=== PATIENT | female | born 1975 | race Caucasian/White ===

== ENCOUNTER 2020-11-04 15:04 | Emergency (ER) | payer SELFPAY ==
[~2020-11-04] VITALS: Ht 154.9 cm; Wt 60.0 kg
[~2020-11-04 15:04] MED LIST: BACTRIM DS1 TAB PO; CIPRO500 MG OR; DOXYCYCL HYC100 MG PO; FLEXERIL PO; MOTRIN800 MG PO; TRAMADOL HYDROC50 MG PO; ULTRAM50 M1 PO
[2020-11-04 16:45] LABS: URINE BILIRUBIN - DIPSTICK NEGATIVE (NEGATIVE); URINE BLOOD DIPSTICK TRACE-LYSED (NEGATIVE); URINE COLOR YELLOW; URINE GLUCOSE - DIPSTICK NEGATIVE (NEGATIVE); URINE KETONE NEGATIVE (NEGATIVE); URINE LEUK ESTERASE NEGATIVE (NEGATIVE); URINE NITRITE - DIPSTICK NEGATIVE (Negative); URINE PROTEIN - DIPSTICK NEGATIVE (NEG-TRACE); URINE SPECIFIC GRAVITY <=1.005; URINE UROBILINOGEN - DIPSTICK 0.2 E.U./dL (0.2)
[2020-11-04 17:46] VITALS: BP 100/55
== END 2020-11-04 16:20 | disposition left against medical advice (07) | DRG 556 ==
LOC: ED 15:04
PROVIDERS: Emergency Medicine
DX: M79.89 Other specified soft tissue disorders (principal); N63.20 Unspecified lump in the left breast, unspecified quadrant; F31.9 Bipolar disorder, unspecified; F17.200 Nicotine dependence, unspecified, uncomplicated; Z91.19 Patient's noncompliance with other medical treatment and regimen

== ENCOUNTER 2021-01-05 10:45 | Emergency (ER) | payer OTHER ==
[~2021-01-05] VITALS: Ht 154.9 cm; Wt 60.0 kg
[2021-01-05 12:06] LABS: HEMATOCRIT 45.1 % (37.0-47.0); HEMOGLOBIN 15.5 g/dl (12.0-16.0); IMMATURE GRANULOCYTES 0.3 % (0.0-5.0); MEAN CORPUSCULAR HGB CONC 34.4 g/dL CAL (32.0-36.0); NEUT# 5.45 thou/uL (2.00-7.15); RED BLOOD COUNT 4.56 mill/uL (4.20-5.60); RED CELL DISTRI WIDTH 12.6 % (11.5-15.5)
[2021-01-05 12:16] LABS: MEAN CELL VOLUME 98.9 fL CALC (80.0-100.0)
[2021-01-05 12:24] LABS: HCG SERUM/URINE (NEG/POS) NEGATIVE (NEGATIVE)
[2021-01-05 12:57] LABS: ALBUMIN 4.1 g/dL (3.2-5.0); ALKALINE PHOSPHATASE 54 u/l (38-126); BILIRUBIN, TOTAL 0.2 mg/dL (0.0-1.4); BUN 4 mg/dL (7-17); BUN/CREATININE RATIO 8 (12-20 (CALC)); CARBON DIOXIDE 28 mmol/l (22-30); CHLORIDE 97 mmol/l (95-108); CREATININE 0.5 mg/dL (0.5-1.0); GFR > 60 ML/MIN (>=60 (CALC)); GFR FOR AFR.AMER. > 60 ML/MIN (>=60 (CALC)); SODIUM 133 mmol/l (137-146); TOTAL PROTEIN 7.3 g/dL (6.3-8.2)
[2021-01-05 12:59] LABS: ANION GAP 11 (6-22 (CALC)); POTASSIUM 3.4 mmol/l (3.5-5.1); SGOT/AST 133 u/l (14-36)
[2021-01-05 14:02] VITALS: BP 100/65
== END 2021-01-05 14:03 | disposition home or self-care (01) | DRG 179 ==
LOC: ED 10:45
PROVIDERS: Family Medicine
DX: U07.1 COVID-19 (principal); F17.200 Nicotine dependence, unspecified, uncomplicated

== ENCOUNTER 2022-05-16 09:59 | Emergency (ER) | payer SELFPAY ==
[~2022-05-16] VITALS: Ht 154.9 cm; Wt 59.0 kg
[2022-05-16 10:07] VITALS: BP 144/76
[2022-05-16 10:15] VITALS: BP 130/96
[2022-05-16] MEDS ORDERED: METOPROL TAR25 MG PO (10:15)
[2022-05-16] MEDS ORDERED: OMEPRAZOLE20 MG PO (10:16)
[2022-05-16 10:47] LABS: BASO% 0.2 % (0-3); HEMATOCRIT 41.9 % (37.0-47.0); HEMOGLOBIN 14.9 g/dl (12.0-16.0); IMMATURE GRANULOCYTES 0.2 % (0.0-5.0); LYMPH% 26.1 % (15-41); MEAN CELL VOLUME 96.1 fL CALC (80.0-100.0); MEAN CORPUSCULAR HGB 34.2 pG CALC (26.0-32.0); MEAN CORPUSCULAR HGB CONC 35.6 g/dL CAL (32.0-36.0); MONO% 8.4 % (2-13); NEUT# 5.58 thou/uL (2.00-7.15); NEUT% 64.1 % (42-76); RED BLOOD COUNT 4.36 mill/uL (4.20-5.60); RED CELL DISTRI WIDTH 12.8 % (11.5-15.5)
[2022-05-16 10:56] LABS: ALBUMIN 4.3 g/dL (3.2-5.0); ALKALINE PHOSPHATASE 63 u/l (38-126); ANION GAP 10 (6-22 (CALC)); BILIRUBIN, TOTAL 0.6 mg/dL (0.0-1.4); BUN 6 mg/dL (7-17); BUN/CREATININE RATIO 11 (12-20 (CALC)); CARBON DIOXIDE 26 mmol/l (22-30); CHLORIDE 107 mmol/l (95-108); CREATININE 0.5 mg/dL (0.5-1.0); GFR FOR AFR.AMER. > 60 ML/MIN (>=60 (CALC)); GFR OTHER RACES > 60 ML/MIN (>=60 (CALC)); SGOT/AST 33 u/l (14-36); SODIUM 140 mmol/l (137-146); TOTAL PROTEIN 7.5 g/dL (6.3-8.2)
[2022-05-16 11:22] VITALS: BP 130/79
[2022-05-16 11:30] VITALS: BP 127/83
[2022-05-16 11:45] VITALS: BP 121/81
[2022-05-16] MEDS ORDERED: MECLIZINE25 MG PO (11:46)
[2022-05-16 12:00] VITALS: BP 124/76
== END 2022-05-16 12:18 | disposition home or self-care (01) | DRG 149 ==
LOC: ED 09:59
PROVIDERS: Family Medicine
DX: R42 Dizziness and giddiness (principal)